=== PATIENT | male | born 1935 | race Caucasian/White ===

== ENCOUNTER 2019-07-05 17:18 | Emergency (ER) | payer BC, MEDICARE, OTHER | END 2019-07-05 17:49 | disposition home or self-care (01) | LOC: ERS 17:18 | DX: S80.12XA Contusion of left lower leg, initial encounter (principal); E78.5 Hyperlipidemia, unspecified; I10 Essential (primary) hypertension; F41.9 Anxiety disorder, unspecified; Z79.899 Other long term (current) drug therapy; W54.1XXA Struck by dog, initial encounter | CPT/HCPCS: 99283 ==